=== PATIENT | female | born 1940 | race Hispanic/Latino ===

== ENCOUNTER 2017-01-28 18:26 | Emergency (ER) | payer MEDICARE ==
[2017-01-28 19:12] LABS: Hematocrit 36.5 % (30.3-42.9); Hemoglobin 12.2 gm/dl (10.1-14.3); Mean Corpuscular HGB Conc 33 % (30-34); Mean Corpuscular Hemoglobin 32 pg (28-32); Mean Corpuscular Volume 97 fl (79-97); Platelet Count 287 K/mm3 (140-440); Red Blood Count 3.78 M/mm3 (3.65-5.03); Red Cell Distribution Width 14.2 % (13.2-15.2); White Blood Count 9.2 K/mm3 (4.5-11.0)
[2017-01-28 19:16] LABS: Alanine Aminotransferase 18 units/L (7-56); Albumin 4.4 g/dL (3.9-5); Albumin/Globulin Ratio 1.8 %; Alkaline Phosphatase 85 units/L (35-129); Anion Gap 19 mmol/L; BUN/Creatinine Ratio 34.28; Blood Urea Nitrogen 24 mg/dL (7-17); Calcium 9.7 mg/dL (8.4-10.2); Carbon Dioxide 26 mmol/L (22-30); Chloride 101.2 mmol/L (98-107); Glucose 219 mg/dL (65-100); Lipase 64 units/L (13-60); Potassium 5.7 mmol/L (3.6-5.0); Sodium 140 mmol/L (137-145); Total Protein 6.9 g/dL (6.3-8.2)
[2017-01-28 19:27] LABS: Bilirubin,Urine NEG (Negative); Blood,Urine SM (Negative); Ketones,Urine NEG (Negative); Leukocyte Esterase,Urine NEG (Negative); Mucus,Urine FEW /HPF; Nitrite,Urine NEG (Negative); Protein,Urine <15 mg/dL mg/dL (Negative); Urobilinogen,Urine < 2.0 mg/dL (<2.0); WBC,Urine < 1.0 /HPF (0.0-6.0)
[2017-01-28 19:51] LABS: Eosinophils % (Auto) 6.9 % (0.0-4.3)
[2017-01-28] MEDS ORDERED: MORPHINE IV ONE (23:50)
[2017-01-28] MEDS ORDERED: ZOFRAN IV ONE (23:50)
--- NOTE | 2017-01-28 23:57 | Emergency Department Report ---
HPI - General Chief Complaint: Abdominal Pain Time Seen by Provider: 01/28/17 23:42 - HPI HPI: Room 10 The patient is a 6-year-old female presented with the chief complaint of abdominal pain. The patient states this evening she developed pain in her right lower quadrant radiating to her right hip. The patient states is a constant sharp pain that waxes and wanes but never goes away. The patient states he feels at times that she has to urinate but she does not. Patient does admit to nausea but denies vomiting or fever. 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, pneumatic equalization tubes - Family History Family history: no significant - Social History Smoking Status: Former Smoker (none 5-6 years) Substance Use Type: None (denies illicit drug use) - Medications Home Medications: Home Medications Medication Instructions Recorded Confirmed Last Taken Type HYDROcodone/APAP 5-325 [[place] 1 - 2 each PO Q6HR PRN #20 tablet 01/29/17 Unknown Rx 5/325] Ketorolac [Toradol] 10 mg PO Q6H PRN #16 tablet 01/29/17 Unknown Rx Ondansetron [Zofran ODT TAB] 8 mg PO Q8HR #20 tab.rapdis 01/29/17 Unknown Rx ED Review of Systems ROS: Stated complaint: BACK, SIDE AND HIP PAIN Other details as noted in HPI Comment: All other systems reviewed and negative Constitutional: denies: chills, fever Eyes: denies: eye pain, eye discharge, vision change ENT: denies: ear pain, throat pain Respiratory: denies: cough, shortness of breath, wheezing Cardiovascular: denies: chest pain, palpitations Endocrine: no symptoms reported Gastrointestinal: abdominal pain, nausea. denies: vomiting Genitourinary: denies: urgency, dysuria, discharge Musculoskeletal: back pain Skin: denies: rash, lesions Neurological: denies: headache, weakness, paresthesias Psychiatric: denies: anxiety, depression Hematological/Lymphatic: denies: easy bleeding, easy bruising Physical Exam - Physical Exam Vital Signs: Vital Signs 01/28/17 18:30 Temperature 98.4 F Pulse Rate 92 H Respiratory 20 Rate Blood Pressure 169/75 O2 Sat by Pulse 99 Oximetry Physical Exam: GENERAL: The patient is well-developed well-nourished female lying on stretcher not appearing to be in acute distress. [] HEENT: Normocephalic. Atraumatic. Extraocular motions are intact. Patient has moist mucous membranes. NECK: Supple. Trachea midline CHEST/LUNGS: Clear to auscultation. There is no respiratory distress noted. HEART/CARDIOVASCULAR: Regular. There is no tachycardia. There is no gallop rub or murmur. ABDOMEN: Abdomen is soft, with tenderness to palpation right upper quadrant and right lower quadrant. Patient has normal bowel sounds. There is no abdominal distention. SKIN: There is no rash. There is no edema. There is no diaphoresis. NEURO: The patient is awake, alert, and oriented. The patient is cooperative. The patient has normal speech and gait. MUSCULOSKELETAL: There is no CVA tenderness. There is no evidence of acute injury. ED Course Vital Signs 01/28/17 18:30 Temperature 98.4 F Pulse Rate 92 H Respiratory 20 Rate Blood Pressure 169/75 O2 Sat by Pulse 99 Oximetry - Reevaluation(s) Reevaluation #1: 01/29/17 02:54 Patient states pain is improved to 2/10. ED Medical Decision Making - Lab Data Result diagrams: 01/28/17 18:43 01/29/17 00:02 Laboratory Tests 01/28/17 01/28/17 01/28/17 18:43 18:43 18:43 WBC 9.2 RBC 3.78 Hgb 12.2 Hct 36.5 MCV 97 MCH 32 MCHC 33 RDW 14.2 Plt Count 287 Lymph % (Auto) 17.8 Mason % (Auto) 7.3 Eos % (Auto) 6.9 H Baso % (Auto) 1.0 Lymph # 1.6 Mason # 0.6 Eos # 0.6 H Baso # 0.1 Seg Neutrophils % 67.0 Seg Neutrophils # 6.0 Sodium 140 Potassium 5.7 H Chloride 101.2 Carbon Dioxide 26 Anion Gap 19 BUN 24 H Creatinine 0.7 Estimated GFR > 60 BUN/Creatinine Ratio 34.28 Glucose 219 H Calcium 9.7 Total Bilirubin 0.30 AST 22 ALT 18 Alkaline Phosphatase 85 Total Protein 6.9 Albumin 4.4 Albumin/Globulin Ratio 1.8 Lipase 64 H Urine Color Straw Urine Turbidity Clear Urine pH 5.0 Ur Specific [place] 1.016 Urine Protein <15 mg/dl Urine Glucose (UA) 50 Urine Ketones Neg Urine Blood Sm Urine Nitrite Neg Urine Bilirubin Neg Urine Urobilinogen < 2.0 Ur Leukocyte Esterase Neg Urine WBC (Auto) < 1.0 Urine RBC (Auto) 10.0 U Epithel Cells (Auto) 1.0 Urine Mucus Few 01/29/17 00:02 WBC RBC Hgb Hct MCV MCH MCHC RDW Plt Count Lymph % (Auto) Mason % (Auto) Eos % (Auto) Baso % (Auto) Lymph # Mason # Eos # Baso # Seg Neutrophils % Seg Neutrophils # Sodium Potassium 5.3 H Chloride Carbon Dioxide Anion Gap BUN Creatinine Estimated GFR BUN/Creatinine Ratio Glucose Calcium Total Bilirubin AST ALT Alkaline Phosphatase Total Protein Albumin Albumin/Globulin Ratio Lipase Urine Color Urine Turbidity Urine pH Ur Specific Ryder Urine Protein Urine Glucose (UA) Urine Ketones Urine Blood Urine Nitrite Urine Bilirubin Urine Urobilinogen Ur Leukocyte Esterase Urine WBC (Auto) Urine RBC (Auto) U Epithel Cells (Auto) Urine Mucus - Radiology Data Radiology results: report reviewed (CT abdomen and pelvis), image reviewed (CT abdomen and pelvis) CT abdomen and pelvis (read by radiologist)-mild right hydronephrosis and hydroureter down to 1 mm stone at the right EJ. Left renal calculi are noted. No hydronephrosis in the left collecting system. No evidence of intestinal structure. The appendix is normal. Moderate diverticulosis of the distal colon. - Differential Diagnosis renal colic, aortic dissection, appendicitis, pyelonephritis Critical care attestation.: If time is entered above; I have spent that time in minutes in the direct care of this critically ill patient, excluding procedure time. ED Disposition Clinical Impression: Renal colic on right side, Acute right flank pain, Hyperkalemia Disposition: TO HOME OR SELFCARE Is pt being admited?: No Does the pt Need Aspirin: No Condition: Stable Instructions: Abdominal Pain (ED), Renal Colic (ED) Additional Instructions: Return to the emergency department immediately should you develop worsening symptoms, fever, inability to tolerate food or liquid or any other concerns. Prescriptions: HYDROcodone/APAP 5-325 [[place] 5/325] 1 - 2 each PO Q6HR PRN #20 tablet PRN Reason: Pain Ketorolac [Toradol] 10 mg PO Q6H PRN #16 tablet PRN Reason: Pain Ondansetron [Zofran ODT TAB] 8 mg PO Q8HR #20 tab.rapdis Referrals: ADAM CHAN MD [Primary Care Provider] - 3-5 Days ABRAHAM GRANDE MD [Staff Physician] - 2-3 Days (Dr Grande a urologist. Please follow up with him for further evaluation) Time of Disposition: 02:58
[2017-01-29] MEDS ORDERED: NACL ONE (00:47)
--- NOTE | 2017-01-29 02:35 | Cat Scan Report ---
FINAL REPORT PROCEDURE: CT ABDOMEN PELVIS WO/W CON TECHNIQUE: Computerized axial tomography of the abdomen and pelvis was performed without intravenous contrast. This study is performed without intravascular contrast material and its sensitivity for abdominal and pelvic pathology, including neoplasms, inflammation, abscess, free fluid, thrombosis, arterial dissection and infarction, is reduced compared with a contrast enhanced study. HISTORY: RLQ abdominal pain, right back pain COMPARISON: No prior studies are available for comparison. FINDINGS: Visualized lower thorax: No significant abnormality. Liver: Normal size and attenuation. Spleen: Normal size and attenuation. Gallbladder and biliary system: Normal. Pancreas: Normal. Adrenals: Normal. Kidneys: Mild right hydronephrosis and hydroureter down to a 1 millimeter stone at the right ureteral vesicle junction. The left collecting system is normal. There are few left renal calculi these measure between 1 and 3 millimeters.. GI tract: No obstruction. No ileus or enteritis. The cecum, appendix and colon are normal. Moderate fecal debris in the colon. Moderate diverticular changes in the distal colon.. Lymph nodes and mesentery: Normal. Vasculature: Moderate atherosclerosis of the aorta and branching vessels.. Bladder: Normal. Reproductive organs: Normal. Peritoneum: No free fluid. Musculoskeletal structures: Mild degenerative changes of the osseous structures.. Other: None. IMPRESSION: Mild right hydronephrosis and hydroureter down to a 1 millimeter stone at the right ureteral vesicle junction. Left renal calculi are noted. No hydronephrosis in the left collecting system. No evidence of intestinal obstruction. The appendix is normal. Moderate diverticulosis of the distal colon..
[2017-01-29] MEDS ORDERED: TORADOL IV ONE (02:54)
[2017-01-29] MEDS ORDERED: KIONEX PO ONE (02:58)
[2017-01-29 03:23] VITALS: BP 151/79
== END 2017-01-29 03:30 | disposition home or self-care (01) ==
LOC: ED 18:26
DX: N23 Unspecified renal colic (principal); E87.5 Hyperkalemia; R10.30 Lower abdominal pain, unspecified; I10 Essential (primary) hypertension; E11.9 Type 2 diabetes mellitus without complications; J44.9 Chronic obstructive pulmonary disease, unspecified
CPT/HCPCS: 36415; 74178; 80053; 81001; 83690; 84132; 85025; 96374; 96375; 99284; J1885; J2270; J2405; Q9967